=== PATIENT | female | born 1990 | race Caucasian/White ===

== ENCOUNTER → 2017-12-02 | Outpatient (CLI) | payer BC ==
[~2017-12-02] MED LIST: CEPH500C PO; FERR-57 PO; IBP600T1 PO; METO5TAB79 PO; ONDAN4ODT PO; OXYC-12 PO; PREN1TAB39 PO; PRM25T PO
[2017-12-02] MEDS: GADOBUTROL 7.5 MMOL/7.5 ML (GADAVIST) VIAL IV ONE (17:51)
--- NOTE | 2017-12-03 09:14 | Diagnostic Imaging Report ---
Indication: Bilateral eye pain, swelling and pressure exacerbated by bending over. Decreased vision in the right eye. I have no priors. Multiplanar, multisequence pre-and post IV contrast enhanced brain MRI performed. In addition to routine brain sequences multiplanar and multi-obliquity pre-and post enhanced imaging through the orbits were performed. Findings: There are no foci of abnormal diffusion restriction. There were no findings of an acute or subacute ischemic infarct. There is no hydrocephalus and no periventricular edema. No mass or space-occupying lesion at the level of the foramen Fernandes. No white matter pathology. No findings of focal or generalized cerebral edema and there is no evidence for an elevation of the intracranial pressures. Cerebral cortical volume appeared normal. There is no mastoid effusion. The cerebellopontine angles appeared normal. The brainstem and posterior fossa unremarkable. There is mild membrane thickening involving bilateral mastoid air cells and slight membrane disease thickening the bilateral maxillary sinus swain with minimal membrane thickening of the left frontal sinus. No paranasal sinus air-fluid level. With the administration of intravenous contrast there was no abnormal intracranial parenchymal or meningeal enhancement. The globes had an unremarkable appearance. There was no edema or distortion of the intra-or extraconal orbital fat. The globes appeared symmetric, no proptosis. Normal orbital enhancement. The cavernous sinuses, sella and suprasellar cisterns appeared unremarkable. No impingement or mass effect upon the optic chiasm, the pituitary infundibulum nondisplaced. Flow voids in the cavernous sinuses are maintained. The extraocular muscles and tendinous insertions appeared unremarkable. No abnormal fluid distention of the optic nerve sheaths. There were was no abnormality or findings to explain the presenting complaint. Impression: Unremarkable pre-and postcontrast enhanced brain MRI and MRI orbits. Dictated by: Dictated on workstation # [id number]
== END ==
LOC: RAD 16:36
PROVIDERS: ATTEND Nurse Practitioner Community Health
DX: H46.9 Unspecified optic neuritis (principal)
CPT/HCPCS: 70553

== ENCOUNTER → 2018-03-21 | Outpatient (CLI) | payer BC ==
--- NOTE | 2018-03-21 17:33 | Diagnostic Imaging Report ---
INDICATION: survey. TECHNIQUE: Multiple real-time grayscale images were obtained over the gravid uterus. COMPARISON: None. FINDINGS: There is a single live intrauterine in the breech presentation. Placenta is anteriorly located and there is no previa. heart rate is 128 beats per minute. Due to advanced gestational age, maternal adnexa are poorly evaluated. anatomy survey was performed and the following structures are visualized and normal: Cerebral ventricles, cerebellum, cisterna magna, stomach, umbilical cord insertion, urinary bladder, three-vessel cord, four-chamber heart, diaphragm and profile. Questionable mild dilation of bilateral renal pelves and suboptimal assessment of the spine. The LÓPEZ is normal at 17.8 cm. Biometrical measurements are as follows: Biparietal 4.62 cm, age 20 weeks 0 days. Head circumference 17.51 cm, age 20 weeks 1 days. Abdominal circumference 15.04 cm, age 20 weeks 2 days. Femur length 13.43 cm, age 20 weeks 6 days. Sonographic estimate age: 20 weeks 3 days. Sonographic estimated date of delivery: 08/07/2018. Estimated Weight: 345 gm (+/- 52 gm). LMP percentile: 63%. heart rate: 128 beats per minute. number: 1 of 1. IMPRESSION: 1. Single live intrauterine with concordant gestational age by ultrasound and LMP. 2. The spine is suboptimally evaluated due to positioning and there is potential mild dilation of bilateral renal pelves. Recommend followup targeted anatomy ultrasound of these structures in the near future. 3. Remainder of the anatomy survey is normal. Dictated by: Dictated on workstation # [id number]
== END ==
LOC: RAD 12:45
PROVIDERS: ATTEND Obstetrics & Gynecology
DX: Z36.89 Encounter for other specified antenatal screening (principal); Z3A.20 20 weeks gestation of pregnancy
CPT/HCPCS: 76805

== ENCOUNTER → 2018-05-23 | Outpatient (CLI) | payer BC ==
--- NOTE | 2018-05-23 14:35 | Diagnostic Imaging Report ---
INDICATION: Follow up anatomy. TECHNIQUE: Multiple real-time grayscale images were obtained over the gravid uterus. COMPARISON: 03/21/2018. FINDINGS: There is a single live fetus in a breech presentation. heart rate was recorded at 146 beats per minute. Placenta is anterior. Amniotic fluid index is 11 cm. Evaluation of the spine and kidneys was attempted. spine remains somewhat limited. There continues to be some mild prominence of the renal pelves bilaterally. Continued followup is recommended. IMPRESSION: spine remains limited in evaluation. kidneys show slight prominence of the pelves. Continued followup is recommended. Dictated by: Dictated on workstation # [id number]
== END ==
LOC: RAD 12:32
PROVIDERS: ATTEND Obstetrics & Gynecology
DX: O35.8XX0 Maternal care for other (suspected) fetal abnormality and damage, not applicable or unspecified (principal); Z3A.29 29 weeks gestation of pregnancy
CPT/HCPCS: 76816

== ENCOUNTER → 2018-07-11 | Outpatient (CLI) | payer BC ==
--- NOTE | 2018-07-11 17:50 | Diagnostic Imaging Report ---
INDICATION: Followup exam. TECHNIQUE: Multiple real-time grayscale images were obtained over the gravid uterus. COMPARISON: None. FINDINGS: The previous OB ultrasound exam performed on 05/23/2018 noted a single live fetus of approximately 29 weeks 1 day gestation. There did appear to be mild hydronephrosis of both kidneys. On this study, the fetus is again visualized. The fetus is cephalic in presentation. heart motion was noted, and a rate of 135 BPM was recorded. There is still mild hydronephrosis of both kidneys. This finding does not appear to have changed significantly. There is no sign of ascites. No other abnormality is noted. As on the previous exam, however, the spine is not well visualized. The growth parameters average 36 weeks 6 days, +/-3 weeks. The estimated weight is in the 50th percentile. The amniotic fluid volume is within normal limits. The placenta is anterior, and there is no previa. Biometrical measurements are as follows: Biparietal 8.80 cm, age 35 weeks 4 days. Head circumference 33.56 cm, age 38 weeks 3 days. Abdominal circumference 32.56 cm, age 36 weeks 4 days. Femur length 7.18 cm, age 36 weeks 6 days. Sonographic estimate age: 36 weeks 6 days. Sonographic estimated date of delivery: 08/02/2018. Estimated Weight: 2997 gm (+/- 438 gm). LMP percentile: 66%. heart rate: 135 beats per minute. number: 1 of 1. IMPRESSION: 1. There is a single live fetus of approximately 36.1 day gestation, +/-1.5 weeks. The EDC remains August 07, 2018. 2. The bilateral mild hydronephrosis of the kidneys seen previously is again evident and no different. No other abnormality is noted, although the spine was not well visualized. 3. The growth parameters have progressed as expected since the prior exam. Dictated by: Dictated on workstation # [id number]
== END ==
LOC: RAD 09:34
PROVIDERS: ATTEND Obstetrics & Gynecology
DX: O36.63X0 Maternal care for excessive fetal growth, third trimester, not applicable or unspecified (principal); Z3A.36 36 weeks gestation of pregnancy
CPT/HCPCS: 76816

== ENCOUNTER 2018-07-20 10:52 | Outpatient (CLI) | payer BC ==
[~2018-07-20] VITALS: Ht 167.6 cm; Wt 86.7 kg
--- NOTE | 2018-07-20 10:45 | NUR ---
GARETH MAS presented to unit via ambulation from home, accompanied by self, with c/o CRAMPING. GARETH MAS weighed, gowned, voided, and to bed. EFHM and TOCO applied, VS taken. GARETH MAS oriented to bed controls, call light, TV, heat, and A/C controls.
[2018-07-20 11:00] VITALS: BP 116/61
--- NOTE | 2018-07-20 11:30 | NUR ---
message left at dr torres office to call EDUARDO .
--- NOTE | 2018-07-20 12:15 | NUR ---
dr villagran given patient c/o and SBAR assessment. ok to d/c home self care.
--- NOTE | 2018-07-20 12:32 | NUR ---
out of WS via ambulation to home self care with precautions. no s/s of distress noted.
--- NOTE | 2018-07-21 14:54 | Physician Query-Final Dx ---
BRIAN ZAIDI 07/21/18 1454: Clinic Account Progress/Dx Physician Query: Dr Vela Please give a diagnosis and include the weeks of gestation. thank you Date of Service Jul 20, 2018 at 10:52 FREDDIE VELA MD 07/22/18 0743: Clinic Account Progress/Dx DIAGNOSIS: Diagnosis 37 weeks with false labor BRIAN ZAIDI Jul 21, 2018 14:54 FREDDIE VELA MD Jul 22, 2018 07:43
== END 2018-07-20 12:32 | disposition home or self-care (01) ==
LOC: LDRP 10:52 → WSo 10:52
PROVIDERS: ATTEND Obstetrics & Gynecology
DX: O47.1 False labor at or after 37 completed weeks of gestation (principal); Z3A.37 37 weeks gestation of pregnancy
CPT/HCPCS: 99213

== ENCOUNTER 2018-08-02 08:00 | Inpatient (IN) | payer BC ==
[2018-08-02] VITALS (53 sets, daily range): BP systolic 85–135; BP diastolic 46–81
[~2018-08-02] VITALS: Ht 162.6 cm; Wt 86.2 kg
--- NOTE | 2018-08-02 07:53 | NUR ---
GARETH MAS presented to unit via ambulatory from home accompanied by spouse, for INDUCTION. GARETH MAS weighed, gowned, voided, and to bed. EFHM and TOCO applied, VS taken. GARETH MAS oriented to bed controls, call light, TV, heat, and A/C controls.
[2018-08-02] MEDS ORDERED: D5 LR IV SOLUTION 1,000 ML IV ONE (08:11)
[2018-08-02] MEDS: D5 LR IV SOLUTION 1,000 ML IV SCH ×3 (08:24→20:58)
[2018-08-02] MEDS ORDERED: OXYTOCIN/NORMAL SALINE 500 ML IV SCH (08:49)
[2018-08-02] MEDS ORDERED: MINERAL OIL CONCENTRATE 99.9% 15 ML UDC TOP PRN (09:00)
[2018-08-02 09:05] LABS: BILIRUBIN,URINE NEGATIVE (NEGATIVE); CLARITY,URINE CLEAR; COLOR,URINE YELLOW; GLUCOSE, URINE (UA) NEGATIVE (NEGATIVE); KETONES,URINE 2+ (NEGATIVE); LEUKOCYTE ESTERASE ,URINE 2+ (NEGATIVE); NITRITE,URINE NEGATIVE (NEGATIVE); PH,URINE 7 (5-9); PROTEIN,URINE NEGATIVE (NEGATIVE); UROBILINOGEN,URINE NORMAL (NORMAL)
[2018-08-02 09:06] LABS: BASOPHILS % (AUTO) 0 % (0-10); EOSINOPHILS # (AUTO) 0.1 10^3/uL (0.0-0.3); EOSINOPHILS % (AUTO) 1 % (0-10); HEMATOCRIT 32 % (35-52); HEMOGLOBIN 10.1 G/DL (11.5-16.0); LYMPHOCYTES # (AUTO) 1.4 X 10^3 (1.0-4.0); LYMPHOCYTES % (AUTO) 16 % (12-44); MEAN CORPUSCULAR HEMOGLOBIN 26 PG (25-34); MEAN CORPUSCULAR HGB CONC 32 G/DL (32-36); MEAN CORPUSCULAR VOLUME 81 FL (80-99); MEAN PLATELET VOLUME 11.4 FL (7.4-10.4); MONOCYTES # (AUTO) 0.6 X 10^3 (0.0-1.0); MONOCYTES % (AUTO) 7 % (0-12); NEUTROPHILS # (AUTO) 6.6 X 10^3 (1.8-7.8); NEUTROPHILS % (AUTO) 76 % (42-75); PLATELET COUNT 183 10^3/uL (130-400); RED CELL DISTRIBUTION WIDTH 15.7 % (10.0-14.5); WHITE BLOOD COUNT 8.7 10^3/uL (4.3-11.0)
[2018-08-02 09:16] LABS: BACTERIA,URINE TRACE /HPF; SQUAMOUS EPITHELIAL CELL,UR 25-50 /HPF
[2018-08-02] MEDS ORDERED: LIDOCAINE/EPI 2% 1:200,00 (XYLOCAINE) 10 ML VIAL ONE ×2 (09:51→21:35)
[2018-08-02] MEDS ORDERED: SUFENTA 0.6MCG/ML BUPIVA 0.125 100 ML ONE (09:52)
[2018-08-02] MEDS ORDERED: LIDOCAINE 1% INJ 20 ML 20 ML VIAL ONE (09:55)
[2018-08-02] MEDS ORDERED: BUPIVACAINE 0.25% 30 ML (SENSORCAINE) VIAL ONE (10:51)
[2018-08-02] MEDS ORDERED: fentaNYL INJECTION 100 MCG/2 ML AMP ONE (10:51)
[2018-08-02] MEDS ORDERED: LACTATED RINGERS 1,000 ML IV SCH (11:26)
[2018-08-02] MEDS ORDERED: EPIDURAL (SUFENTA 0.6MCG/ML BUPIVA 0.125%) 100 ML BAG EPI PRN (11:30)
[2018-08-02] MEDS ORDERED: diphenhydrAMINE 50 MG/ML INJ (BENADRYL) IV PRN (11:30)
[2018-08-02] MEDS ORDERED: NALOXONE 0.4 MG/ML 1 ML (NARCAN) VIAL IV PRN ×2 (11:30)
[2018-08-02] MEDS ORDERED: METOCLOPRAMIDE INJ 10 MG/2 ML (REGLAN) IV PRN (11:30)
[2018-08-02] MEDS ORDERED: CATHETER FLUSH 10 ML SYR IV SCH (14:00)
[2018-08-02] MEDS: ONDANSETRON 4 MG/2 ML (SDV) Z0FRAN IV PRN ×2 (16:27→21:38)
[2018-08-02] MEDS ORDERED: ACETAMINOPHEN 325 MG TABLET PO ONE (16:30)
[2018-08-02] MEDS: OXYTOCIN/NORMAL SALINE 500 ML IV SCH ×2 (22:50→23:50)
--- NOTE | 2018-08-02 22:53 | OB Labor & Delivery Record ---
Vag Delivery Note Vag Delivery Note Date of Delivery: 08/02/18 Preoperative Diagnosis: Susan Campa is a (27 /Para 2 /1 ,Gestational Age39 2/7 weeks for induction of labor Postoperative Diagnosis: Same Surgeon: RENE MCCONNELL Anesthesia: Epidural Delivery Type: vaginal Findings: Viable female , apgars [], weight 3910 grams Lacerations: 2nd degre Intact placenta with 3 vessel cord. No nuchal cord, body cord or shoulder dystocia Estimated Blood Loss: 300 ml Complications: None Condition: Stable Description of Procedure: The patient is a 27 /Para 2 /1 ,Gestational Age39 2/7 weeks for induction of labor. She was admitted and informed consent was obtained. Her labor course was remarkable for oxytocin augmentation, AROM. She progressed to complete dilatation and began to push. She was then set up for delivery. The 's head was delivered atraumatically in the OA position. The shoulders and remainder of the infant's body were then delivered without difficulty. There was a right hand near the shoulder/right ear, that caused a delay of delivery, but there was no shoulder dystocia. Upon delivery, the head was held below the level of the perineum and the mouth and nares were bulb suctioned. The cord was doubly clamped and cut and the was handed off to the pediatric staff. An intact placenta with 3- vessel cord delivered via Crow and there was found to be minimal bleeding.~ Vigorous fundal massage was performed and the fundus was found to be firm. IV oxytocin was given. Examination of the vagina and perineum revealed a 2nd degree. laceration repaired in the usual fashion with 3-0 vicryl suture. Following the repair, sponge, instrument and needle counts were correct. Mom and baby were both in stable condition in the labor suite. Vitals - Labs Vital Signs - I&O Vital Signs Date Time Temp Pulse Resp B/P (MAP) Pulse Ox O2 Delivery O2 Flow Rate FiO2 08/02/18 20:00 88 16 106/55 (72) 100 08/02/18 19:45 87 107/61 (76) 99 08/02/18 19:30 85 106/66 (79) 99 08/02/18 19:15 86 105/62 (76) 98 08/02/18 19:00 98 103/57 (72) 99 08/02/18 18:45 86 16 116/57 (76) 98 08/02/18 18:15 85 114/63 (80) 97 08/02/18 18:00 89 107/56 (73) 97 08/02/18 17:45 97.8 87 98 08/02/18 17:30 90 16 99/55 (70) 93 08/02/18 17:15 84 97/55 (69) 94 08/02/18 17:00 80 99/58 (72) 98 08/02/18 16:45 87 94/61 (72) 98 08/02/18 16:30 89 99/54 (69) 100 08/02/18 16:15 97 112/69 (83) 98 08/02/18 16:00 97.1 90 16 109/61 (77) 98 08/02/18 15:45 95 102/59 (73) 99 08/02/18 15:30 92 108/57 (74) 98 08/02/18 15:15 87 100/58 (72) 99 08/02/18 15:00 87 85/46 (59) 99 08/02/18 14:45 84 16 97/52 (67) 94 08/02/18 14:30 85 110/59 (76) 93 08/02/18 14:15 96.7 94 104/57 (73) 99 08/02/18 14:00 92 16 102/55 (71) 99 08/02/18 13:45 87 100/57 (71) 94 08/02/18 13:45 87 102/55 (71) 94 08/02/18 13:30 101 16 100/57 (71) 98 08/02/18 13:15 115 104/61 (75) 100 08/02/18 13:00 93 99/56 (70) 99 08/02/18 12:30 102 16 109/63 (78) 97 08/02/18 12:15 94 16 117/64 (81) 96 08/02/18 12:00 89 117/64 (81) 96 08/02/18 11:45 98.0 86 16 107/57 (74) 98 Room Air 98.00 08/02/18 11:30 92 123/58 (79) 97 Room Air 08/02/18 11:10 94 120/79 (93) 97 Room Air 08/02/18 11:06 94 118/79 (92) 99 Room Air 08/02/18 11:00 89 123/73 (90) 99 Room Air 08/02/18 11:00 94 124/65 (84) 99 Room Air 08/02/18 10:55 100 16 124/65 (84) Room Air 08/02/18 10:50 88 16 120/75 (90) Room Air 08/02/18 10:45 93 105/58 (74) Room Air 08/02/18 10:30 87 16 106/64 (78) Room Air 08/02/18 10:15 97.4 85 109/63 (78) Room Air 08/02/18 09:45 87 104/64 (77) Room Air 08/02/18 09:15 92 18 105/69 (81) Room Air 08/02/18 08:05 97.3 85 20 109/69 (82) Room Air Labs Laboratory Tests 08/02/18 08:00: Urine Color YELLOW, Urine Clarity CLEAR, Urine pH 7, Urine Specific [place] 1.010L, Urine Protein NEGATIVE, Urine Glucose (UA) NEGATIVE, Urine Ketones 2+H, Urine Nitrite NEGATIVE, Urine Bilirubin NEGATIVE, Urine Urobilinogen NORMAL, Urine Leukocyte Esterase 2+H, Urine RBC (Auto) NEGATIVE, Urine RBC NONE, Urine WBC 10-25H, Urine Squamous Epithelial Cells 25-50H, Urine Renal Epithelial Cells NONE, Urine Crystals NONE, Urine Bacteria TRACE, Urine Casts NONE, Urine Mucus NEGATIVE, Urine Culture Indicated YES 08/02/18 08:20: White Blood Count 8.7, Red Blood Count 3.94L, Hemoglobin 10.1L, Hematocrit 32L, Mean Corpuscular Volume 81, Mean Corpuscular Hemoglobin 26, Mean Corpuscular Hemoglobin Concent 32, Red Cell Distribution Width 15.7H, Platelet Count 183, Mean Platelet Volume 11.4H, Neutrophils (%) (Auto) 76H, Lymphocytes (%) (Auto) 16, Monocytes (%) (Auto) 7, Eosinophils (%) (Auto) 1, Basophils (%) (Auto) 0, Neutrophils # (Auto) 6.6, Lymphocytes # (Auto) 1.4, Monocytes # (Auto) 0.6, Eosinophils # (Auto) 0.1, Basophils # (Auto) 0.0 RENE MCCONNELL DO Aug 02, 2018 22:52
[2018-08-02] MEDS ORDERED: BENZOCAINE/MENTHOL (DERMOPLAST) 56 ML CAN TP PRN (23:00)
[2018-08-02] MEDS ORDERED: DIBUCAINE (NUPERCAINAL) 1% OINT 30 GM TOP PRN (23:00)
[2018-08-02] MEDS ORDERED: MEASLES,MUMPS,RUBELLA 1 EA INJ SQ ONE (23:00)
[2018-08-02] MEDS ORDERED: TETANUS,DIPTH,PERTUSS P/F (BOOSTRIX) 0.5 ML VIAL IM ONE (23:00)
[2018-08-02] MEDS ORDERED: WITCH HAZEL(TUCKS) 40 EA JAR TOP PRN (23:00)
--- NOTE | 2018-08-02 23:00 | NUR ---
As this rn assumes care, wagner cath not in place, epidural cath removed, cath tip in tact.
[2018-08-03] MEDS ORDERED: IBUPROFEN 600 MG (MOTRIN) TAB PO ONE (01:26)
[2018-08-03] MEDS: IBUPROFEN 600 MG (MOTRIN) TAB PO SCH ×3 (01:27→20:15)
[2018-08-03] MEDS ORDERED: CATHETER FLUSH 10 ML SYR IV SCH (06:00)
[2018-08-03 06:18] LABS: BASOPHILS % (AUTO) 0 % (0-10); EOSINOPHILS # (AUTO) 0.1 10^3/uL (0.0-0.3); EOSINOPHILS % (AUTO) 1 % (0-10); HEMATOCRIT 29 % (35-52); HEMOGLOBIN 8.9 G/DL (11.5-16.0); LYMPHOCYTES # (AUTO) 1.4 X 10^3 (1.0-4.0); LYMPHOCYTES % (AUTO) 11 % (12-44); MEAN CORPUSCULAR HEMOGLOBIN 25 PG (25-34); MEAN CORPUSCULAR HGB CONC 31 G/DL (32-36); MEAN CORPUSCULAR VOLUME 81 FL (80-99); MEAN PLATELET VOLUME 11.1 FL (7.4-10.4); MONOCYTES % (AUTO) 8 % (0-12); NEUTROPHILS # (AUTO) 10.1 X 10^3 (1.8-7.8); NEUTROPHILS % (AUTO) 80 % (42-75); PLATELET COUNT 153 10^3/uL (130-400); RED CELL DISTRIBUTION WIDTH 15.4 % (10.0-14.5); WHITE BLOOD COUNT 12.6 10^3/uL (4.3-11.0)
[2018-08-03 06:21] VITALS: BP 94/55
[2018-08-03] MEDS: ACETAMINOPHEN 500 MG TAB (TYLENOL) PO SCH ×3 (06:21→22:07)
--- NOTE | 2018-08-03 07:54 | Anesthesia-Regional Post-Op ---
Regional Patient Condition Mental Status: Alert, Oriented x3 Circulation: Same as Pre-Op Headache: Absent Sensation: Full Recovery Motor Block: Absent Post Op Complications Complications None Follow Up Care/Instructions Patient Instructions None needed. Anesthesia/Patient Condition Patient is doing well, no complaints, stable vital signs, no apparent adverse anesthesia problems. No complications reported per nursing. SILVERIO LANE CRNA August 03, 2018 07:54
[2018-08-03 07:55] VITALS: BP 106/70
[2018-08-03] MEDS: PRENATAL VITAMIN 1 EA TAB PO SCH (08:10)
[2018-08-03] MEDS ORDERED: FERROUS SULF 325 MG (IRON) TAB PO SCH (09:00)
[2018-08-03] MEDS: DOCUSATE SODIUM 100 MG (COLACE) CAP PO SCH ×2 (09:18→21:53)
[2018-08-03 12:00] VITALS: BP 104/70
--- NOTE | 2018-08-03 14:00 | NUR ---
Rhogam given with instructions - ID care given. Pt complains of uterine cramping. Tylenol and Ibuprofen given routinely. Warm blanket given for cramping in between pain medication.
--- NOTE | 2018-08-03 16:20 | NUR ---
REPORT RECEIVED FROM SYDNEE PARKER RN.
--- NOTE | 2018-08-03 17:25 | NUR ---
FAMILY AT BEDSIDE. DENIES ANY WANTS OR NEEDS.
--- NOTE | 2018-08-03 17:43 | Postpartum Progress Note ---
Note Note Day # 1 s/p Subjective: Patient is without complaints. Ambulating, voiding. Tolerating a regular diet without nausea or vomiting. Normal lochia. Pain is well controlled with oral pain medications. [] feeding. [] Objective: 08/03/18 08/03/18 06:21 07:55 Temp 97.8 97.9 Pulse 83 80 Resp 18 20 B/P (MAP) 94/55 (68) 106/70 (82) Pulse Ox 95 98 O2 Delivery Room Air 08/03/18 00:00 Intake Total 1700 ml Balance 1700 ml Laboratory Tests Test 08/03/18 06:05 Range/Units White Blood Count 12.6 H 4.3-11.0 10^3/uL Red Blood Count 3.54 L 4.35-5.85 10^6/uL Hemoglobin 8.9 L 11.5-16.0 G/DL Hematocrit 29 L 35-52 % Mean Corpuscular Volume 81 80-99 FL Mean Corpuscular Hemoglobin 25 25-34 PG Mean Corpuscular Hemoglobin Concent 31 L 32-36 G/DL Red Cell Distribution Width 15.4 H 10.0-14.5 % Platelet Count 153 130-400 10^3/uL Mean Platelet Volume 11.1 H 7.4-10.4 FL Neutrophils (%) (Auto) 80 H 42-75 % Lymphocytes (%) (Auto) 11 L 12-44 % Monocytes (%) (Auto) 8 0-12 % Eosinophils (%) (Auto) 1 0-10 % Basophils (%) (Auto) 0 0-10 % Neutrophils # (Auto) 10.1 H 1.8-7.8 X 10^3 Lymphocytes # (Auto) 1.4 1.0-4.0 X 10^3 Monocytes # (Auto) 1.0 0.0-1.0 X 10^3 Eosinophils # (Auto) 0.1 0.0-0.3 10^3/uL Basophils # (Auto) 0.0 0.0-0.1 10^3/uL Physical Exam: General - Alert and oriented, no apparent distress Abdomen - Soft, appropriately tender to palpation, non-distended, fundus firm at umbilicus Extremities - no edema, negative Chay's bilaterally [] Assessment: [] post- day # [], status post [] vaginal delivery. Recovering well, hemodynamically stable [] Plan: Routine care. Encourage breast feeding. Encourage ambulation. Ferrous sulfate supplementation. Plan for discharge [] Vitals - Labs Vital Signs - I&O Vital Signs Date Time Temp Pulse Resp B/P (MAP) Pulse Ox O2 Delivery O2 Flow Rate FiO2 08/03/18 07:55 97.9 80 20 106/70 (82) 98 Room Air 08/03/18 06:21 97.8 83 18 94/55 (68) 95 08/02/18 23:15 112 18 129/55 (79) 08/02/18 23:00 18 08/02/18 22:52 108 20 132/81 (98) 08/02/18 22:05 109 22 135/62 (86) 08/02/18 21:50 113 22 108/63 (78) 08/02/18 21:35 121 22 113/69 (84) 08/02/18 21:20 84 18 99/54 (69) 08/02/18 21:05 86 18 102/59 (73) 98 08/02/18 20:50 98.0 100 18 99/57 (71) 99 08/02/18 20:35 80 18 93/47 (62) 98 08/02/18 20:20 87 18 97/50 (66) 99 08/02/18 20:00 88 16 106/55 (72) 100 08/02/18 19:45 87 107/61 (76) 99 08/02/18 19:30 85 106/66 (79) 99 08/02/18 19:15 86 105/62 (76) 98 08/02/18 19:00 98 103/57 (72) 99 08/02/18 18:45 86 16 116/57 (76) 98 08/02/18 18:15 85 114/63 (80) 97 08/02/18 18:00 89 107/56 (73) 97 08/02/18 17:45 97.8 87 98 I & O 08/03/18 07:00 Intake Total 2700 ml Balance 2700 ml Labs Laboratory Tests 08/03/18 06:05: White Blood Count 12.6H, Red Blood Count 3.54L, Hemoglobin 8.9L, Hematocrit 29L , Mean Corpuscular Volume 81, Mean Corpuscular Hemoglobin 25, Mean Corpuscular Hemoglobin Concent 31L, Red Cell Distribution Width 15.4H, Platelet Count 153, Mean Platelet Volume 11.1H, Neutrophils (%) (Auto) 80H, Lymphocytes (%) (Auto) 11L, Monocytes (%) (Auto) 8, Eosinophils (%) (Auto) 1, Basophils (%) (Auto) 0, Neutrophils # (Auto) 10.1H, Lymphocytes # (Auto) 1.4, Monocytes # (Auto) 1.0, Eosinophils # (Auto) 0.1, Basophils # (Auto) 0.0 Microbiology 08/02/18 Urine Culture - Final, Complete Lactobacillus species See Report RENE MCCONNELL DO August 03, 2018 17:43
[2018-08-04 02:05] VITALS: BP 108/70
[2018-08-04] MEDS: IBUPROFEN 600 MG (MOTRIN) TAB PO SCH ×2 (02:09→07:39)
[2018-08-04] MEDS: ACETAMINOPHEN 500 MG TAB (TYLENOL) PO SCH (06:18)
[2018-08-04 07:35] VITALS: BP 109/73
[2018-08-04] MEDS: PRENATAL VITAMIN 1 EA TAB PO SCH (07:39)
[2018-08-04] MEDS ORDERED: IBUP-844 PO (11:19)
[2018-08-04] MEDS ORDERED: ACET-77 PO (11:19)
--- NOTE | 2018-08-04 11:21 | Discharge Inst-Women's Service ---
Discharge Inst-Women's Serv Depart Medication/Instructions New, Converted or Re-Newed RX: RX on Chart Final Diagnosis induction, social vaginal delivery epidural antepartum and acute blood loss anemia Consults/Follow Up Additional Follow Up: Yes (6 weeks) Activity Activity: Activity as Tolerated Driving Instructions: You May Drive NO SMOKING: NO SMOKING Nothing Inside Vagina: No Douching, No [place], No Tampons Diet Discharge Diet: No Restrictions Symptoms to Report to : Pain Increased, Vaginal Bleeding Increase, Cramps in Feet or Legs For Any Problems or Questions: Contact Your Physician RENE MCCONNELL DO August 04, 2018 11:21
--- NOTE | 2018-08-04 11:22 | Postpartum Progress Note ---
Note Note Day # 2 s/p Subjective: Patient is without complaints. Ambulating, voiding. Tolerating a regular diet without nausea or vomiting. Normal lochia. Pain is well controlled with oral pain medications. [] feeding. [] Objective: 08/04/18 08/04/18 02:05 07:35 Temp 98.2 97.9 Pulse 74 78 Resp 18 16 B/P (MAP) 108/70 (83) 109/73 (85) Pulse Ox 100 99 O2 Delivery Room Air Room Air Physical Exam: General - Alert and oriented, no apparent distress Abdomen - Soft, appropriately tender to palpation, non-distended, fundus firm at umbilicus Extremities - no edema, negative Chay's bilaterally [] Assessment: [] post- day # [], status post [] vaginal delivery. Recovering well, hemodynamically stable [] Plan: Routine care. Encourage breast feeding. Encourage ambulation. Ferrous sulfate supplementation. Plan for discharge [] Vitals - Labs Vital Signs - I&O Vital Signs Date Time Temp Pulse Resp B/P (MAP) Pulse Ox O2 Delivery O2 Flow Rate FiO2 08/04/18 07:35 97.9 78 16 109/73 (85) 99 Room Air 08/04/18 02:05 98.2 74 18 108/70 (83) 100 Room Air 08/03/18 12:00 98.3 82 20 104/70 (81) 99 Room Air Labs Microbiology 08/02/18 Urine Culture - Final, Complete Lactobacillus species See Report RENE MCCONNELL DO August 04, 2018 11:22
[2018-08-04 11:30] VITALS: BP 109/73
--- NOTE | 2018-08-04 12:40 | NUR ---
Home instructions given orally and written. Verbalizes understanding. Ambulated to exit accompanied by and this nurse.
== END 2018-08-04 12:40 | disposition home or self-care (01) | DRG 806 ==
LOC: LDRP 08:00
PROVIDERS: ADMIT Obstetrics & Gynecology; ATTEND Obstetrics & Gynecology
PROC: 10E0XZZ Delivery of Products of Conception, External Approach (ICD-10-PCS; principal; 2018-08-02)
PROC: 0KQM0ZZ Repair Perineum Muscle, Open Approach (ICD-10-PCS; 2018-08-02)
PROC: 10907ZC Drainage of Amniotic Fluid, Therapeutic from Products of Conception, Via Natural or Artificial Opening (ICD-10-PCS; 2018-08-02)
DX: O99.02 Anemia complicating childbirth (principal); O70.1 Second degree perineal laceration during delivery; O90.81 Anemia of the puerperium; D62 Acute posthemorrhagic anemia; Z37.0 Single live birth; Z3A.39 39 weeks gestation of pregnancy
CPT/HCPCS: 36415; 81000; 83033; 85025; 86850; 86900; 86901; 87088

== ENCOUNTER → 2020-02-23 | Outpatient (CLI) | payer BC ==
[~2020-02-23] MED LIST changes: +ACET-78 PO; +IBUP-844 PO
--- NOTE | 2020-02-23 13:03 | Diagnostic Imaging Report ---
PROCEDURE: Pelvic comp/transvaginal sonogram. TECHNIQUE: Complete transabdominal and transvaginal pelvic ultrasound was performed. In addition, limited pelvic Doppler was performed. INDICATION: Abnormal uterine bleeding. FINDINGS: The uterus is anteverted measuring 7.4 x 3.7 x 4.4 cm. The endometrium is 4 mm in thickness. No myometrial mass is identified. The right ovary measures 2.2 x 2.0 x 2.4 cm and the left ovary measures 2.3 x 1.6 x 1.9 cm. The ovaries contain small follicles. Both ovaries demonstrate blood flow. No adnexal mass or free fluid is detected. IMPRESSION: Unremarkable transabdominal and transvaginal pelvic ultrasound with limited pelvic Doppler. Dictated by: Dictated on workstation # [id number]
== END ==
LOC: RAD 11:00
PROVIDERS: ATTEND Obstetrics & Gynecology
DX: N93.9 Abnormal uterine and vaginal bleeding, unspecified (principal)
CPT/HCPCS: 76830; 76856

== ENCOUNTER 2020-03-14 05:34 | Outpatient (RCR) | payer BC ==
[~2020-03-14] VITALS: Ht 165.1 cm; Wt 76.4 kg
[~2020-03-14 05:34] MED LIST changes: +BUPR300T43 PO
== END 2020-03-14 10:13 | disposition home or self-care (01) ==
LOC: PREOP 05:34
PROVIDERS: ATTEND Obstetrics & Gynecology
DX: Z01.812 Encounter for preprocedural laboratory examination (principal); N81.2 Incomplete uterovaginal prolapse; N93.9 Abnormal uterine and vaginal bleeding, unspecified; Z20.828 Contact with and (suspected) exposure to other viral communicable diseases
CPT/HCPCS: 87635

== ENCOUNTER 2020-03-20 05:44 | Outpatient (RCR) | payer BC | END 2020-03-20 14:33 | disposition home or self-care (01) | LOC: PREOP 05:44 | PROVIDERS: ATTEND Obstetrics & Gynecology | DX: Z01.812 Encounter for preprocedural laboratory examination (principal); N81.4 Uterovaginal prolapse, unspecified; N93.9 Abnormal uterine and vaginal bleeding, unspecified; Z20.828 Contact with and (suspected) exposure to other viral communicable diseases | CPT/HCPCS: 87635 ==

== ENCOUNTER 2020-03-22 12:01 | Day surgery (SDC) | payer BC ==
[2020-03-22] VITALS (8 sets, daily range): BP systolic 88–114; BP diastolic 41–71
[~2020-03-22] VITALS: Ht 165.1 cm; Wt 76.4 kg
[2020-03-22] MEDS ORDERED: metroNIDAZOLE 500MG/100ML IVPB 100 ML IV ONE (12:15)
[2020-03-22] MEDS ORDERED: ceFAZolin INJECTION 1,000 MG in WATER (STERILE) FOR INJECTION 10 ML IV ONE (12:15)
[2020-03-22] MEDS: LACTATED RINGERS 1,000 ML IV PRN ×3 (12:39→16:57)
[2020-03-22 12:48] LABS: BASOPHILS % (AUTO) 1 % (0-10); EOSINOPHILS # (AUTO) 0.2 10^3/uL (0.0-0.3); EOSINOPHILS % (AUTO) 2 % (0-10); HEMATOCRIT 47 % (35-52); HEMOGLOBIN 15.5 g/dL (11.5-16.0); LYMPHOCYTES % (AUTO) 15 % (12-44); MEAN CORPUSCULAR HEMOGLOBIN 29 pg (25-34); MEAN CORPUSCULAR HGB CONC 33 g/dL (32-36); MEAN CORPUSCULAR VOLUME 88 fL (80-99); MEAN PLATELET VOLUME 11.5 fL (9.0-12.2); MONOCYTES # (AUTO) 0.7 10^3/uL (0.0-1.0); MONOCYTES % (AUTO) 10 % (0-12); NEUTROPHILS # (AUTO) 4.9 10^3/uL (1.8-7.8); NEUTROPHILS % (AUTO) 72 % (42-75); PLATELET COUNT 197 10^3/uL (130-400); WHITE BLOOD COUNT 6.8 10^3/uL (4.3-11.0)
[2020-03-22] MEDS ORDERED: ONDANSETRON 4 MG/2 ML (SDV) Z0FRAN ONE (13:27)
[2020-03-22] MEDS ORDERED: MIDAZOLAM 2 MG/2 ML (VERSED) VIAL ONE (13:27)
[2020-03-22] MEDS ORDERED: proPOfol 200 MG/20 ML (DIPRIVAN) VIAL IV ONE (13:27)
[2020-03-22] MEDS ORDERED: ROCURONIUM 10 MG/ML 5 ML SYRINGE IV ONE ×2 (13:27→17:09)
[2020-03-22] MEDS ORDERED: LIDOCAINE PF 2% 5 ML (XYLOCAINE) VIAL ONE (13:27)
[2020-03-22] MEDS ORDERED: SEVOFLURANE (ULTANE) 15 ML INHAL SOLN ONE ×4 (13:27→17:04)
[2020-03-22] MEDS ORDERED: NEOSTIGMINE 3 MG/3 ML VIAL ONE (13:29)
[2020-03-22] MEDS ORDERED: fentaNYL INJECTION 100 MCG/2 ML AMP ONE ×2 (13:29→17:11)
[2020-03-22] MEDS ORDERED: GLYCOPYRROLATE 0.2 MG/ML (ROBINUL) 2 ML VIAL ONE (13:29)
--- NOTE | 2020-03-22 14:18 | Progress Note-Pre Operative ---
Pre-Operative Progress Note H&P Reviewed The H&P was reviewed, patient examined and no changes noted. Date Seen by Provider: Mar 22, 2020 Time Seen by Provider: 14:00 Date H&P Reviewed: Mar 22, 2020 Time H&P Reviewed: 14:00 Pre-Operative Diagnosis: Abnormal uterine bleeding, symptomatic uterovaginal prolapse RENE MCCONNELL DO Mar 22, 2020 14:18
[2020-03-22] MEDS ORDERED: LIDOCAINE/EPI 1%-1:100,000 (XYLOCAINE) 50 ML ONE (15:12)
[2020-03-22] MEDS ORDERED: morphine INJ 4 MG/ML 1 ML (VIAL/SYRINGE) IVP PRN (15:15)
[2020-03-22] MEDS ORDERED: KETOROLAC 30 MG/ML VIAL IV SCH (15:15)
[2020-03-22] MEDS ORDERED: ONDANSETRON 4 MG (ZOFRAN) ORAL DISSOLVE TAB PO PRN (15:15)
[2020-03-22] MEDS ORDERED: OXYC5TAB PO (15:20)
[2020-03-22] MEDS ORDERED: ACET-2267 PO (15:20)
[2020-03-22] MEDS ORDERED: IBUP-1773 PO (15:20)
[2020-03-22] MEDS ORDERED: DOCU-143 PO (15:20)
--- NOTE | 2020-03-22 15:22 | Discharge Inst-Women's Service ---
Discharge Inst-Women's Serv Depart Medication/Instructions New, Converted or Re-Newed RX: RX on Chart Final Diagnosis abnormal uterine bleeding incomplete uterovaginal prolapse Problems Reviewed?: Yes Consults/Follow Up Additional Follow Up: Yes (1 week and 10-12 weeks) Activity Activity: Activity as Tolerated Driving Instructions: No Driving for 1 Week NO SMOKING: NO SMOKING Nothing Inside Vagina: No Douching, No [place] (for 10-12 weeks (until cleared by physician)), No Tampons Other Activity may return to work as scheduled Diet Discharge Diet: No Restrictions Symptoms to Report to : Swelling Increased, Bleeding Excessive, Pain Increased, Constipation(Persistant), Fever Over 101 Degrees F, Vaginal Bleeding Increase, Cramps in Feet or Legs, Vaginal Discharge Foul For Any Problems or Questions: Contact Your Physician Skin/Wound Care Infection Signs and Symptoms: Increased Redness, Foul Odor of Wound, Increased Drainage, Skin Itchy or Has a Rash, Increased Swelling, Temperature Above 101 F Operative Area Clean and Dry: You May Remove Bandage (in 3 days (or if soiled or wet)) Stitches/Allan/Dermabond: Dermabond Bathing Instructions: RENE Alatorre DO Mar 22, 2020 15:22
--- NOTE | 2020-03-22 15:23 | Operative Report ---
Operative Report Date of Procedure/Surgery Mar 22, 2020 Surgeon (s) RENE MCCONNELL DO Machine Sewer (s): NA Post-Operative Diagnosis abnormal uterine bleeding incomplete uterovaginal prolapse pelvic congestion Procedure Performed Bernabe Mckeon salpingectomy (partial) ovarian suspension culdoplasty Description of Procedure Anesthesia Type: General Estimated blood loss (mL): 200 Specimen(s) collected/removed uterus, bilateral tubes Description of the Procedure After informed consent was obtained, patient was taken into the operating room where general anesthetic was found to be adequate. She was prepped and draped in the usual sterile fashion in the dorsal lithotomy position. A Aguilar catheter was placed. A speculum was placed in the vagina. There was 2- 3 + uterine prolapse with minimal cystocele or rectocele. The cervix prolapsed to the introitus after grasping with the tenaculum. The cervix was visualized and the anterior lip was grasped with a sharp toothed tenaculum. This prolapsed to the introitus (3+). The uterus was sounded and depth was approximately 8 centimeters. I placed the Tatiana device (8 cm) and a 3.0 cm collar was advanced over the cervix. I inserted the Tatiana without difficulty, inflating the balloon and securing it around the fornix of the cervix. The collar was then secured with sutures at 12 o'clock. Attention was then turned to the patient's abdomen. A supraumbilical incision was made about 8 mm. A Veress needle was inserted and I confirmed intraabdominal placement with a drop in pressure and the saline drop test. The opening pressure was 8 mmHg. I then insufflated the abdomen to a maximum of 15 mmHg with warmed CO2 gas. I placed an additional 8 mm trocar in the left abdomen lateral to the umbilicus approximately 15 cm. It was determined that this could be completed robotically. The second robotic port was placed about 12 cm lateral to the right placement. This was an 8 mm trocar. These were placed under direct visualization of the laparoscope. 1% Lidocaine with epinephrine was injected prior to placement of all trocars. When all placements were confirmed, the patient was placed in steep Trendelenburg allowing adequate visualization and the robot was brought in for docking. The docking was accomplished without difficulty. I then took over the command of the robot utilizing the vessel sealer and monopolar jose. there were clips on the tubs from previous tubal sterilization, but a the majority of the tubes were still present. There were filmy adhesions of the right tube to the ovarian fossa on the right. These were taken down with the jose. I was able to visualize the round ligaments bilaterally and grasped them and cauterized with bipolar cautery and then cut with my jose. At this point, I then did bilateral salpingectomy. I incised the mesosalpinx with the jose. Then, I grasped with cornu and transected bilaterally using the vessel sealer. I then moved my dissection to the posterior leaves of the broad ligament. I dissected the posterior leaves of the broad ligament off the uterine arteries skeletonizing them bilaterally. I then took a second clamp with the vessel sealer and with the jose, transected the vessels away from the lateral aspect to the cervical stroma. These vessels were very dilated and tortuous. I dissected the anterior peritoneum off the lower uterine segment. I continually pushed the bladder back and I took excessively great care and I was eventually able to dissect the vesicouterine peritoneum off the lower uterine segment. I then dissected in a V fashion towards the midline between the uterosacral ligaments. This allowed me to skeletonize the uterine vessels bilaterally. The balloon on the TATIANA was insufflated. This allowed me to see the TATIANA circumferentially. I then performed a colpotomy anteriorly and then amputate with cervix away from the vaginal fornix. I then continued the colpotomy circumferentially. Once this was performed, the program assistant removed the uterus, tubes and ovaries through the vagina. She then packed the vagina with a laparotomy sponge to maintain the pneumoperitoneum. . I then began closure of the vaginal cuff. I closed the apices of the vaginal cuff with 2-0 Vicryl V lock sutures with a colposuspension through the uterosacral ligaments. This suspended the apices of the vaginal cuff. I extended this to the midline from both sides and overlapped the V lock sutures in the midline. Excellent closure is noted and hemostasis is achieved. I took an additional O Vicryl and did a modified culdoplasty to reduce the enterocele taking care to avoid the ureters. These could be seen normal and effluxing. This was tied after the purse string suture was placed. In addition, after the hysterectomy and salpingectomy, the ovaries were noted to be prolapsed to the vaginal cuff. So I did suspend the ovaries bilaterally to prevent post operative pain or adhesions to the cuff. I took the 0 V-lock suture and suspended each ovary to the ipsilateral round ligament remnant. All the needles were removed from the patient's abdomen. The pelvis was irrigated. There was no active bleeding noted. Now, the robotic instruments were removed and the robot was undocked. Bilateral ureters were seen the entire time during the surgery and were peristalsing. There was no excessive bleeding noted. The trocars were removed under direct visualization. The laparoscopic sites were visualized and found to be hemostatic. The trocar sites were injected with 1% lidocaine with epinephrine. The skin incisions were closed with 4-0 Monocryl in a subcuticular fashion and then with Dermabond. Op sites were placed over the incision sites. The instruments were removed from the vagina and I noted there were no abrasions. Findings of the Procedure 2-3+ uterine prolapse small, boggy uterus dilated/congested vessels in the pelvis evidence of tubal sterilization, bilateral Allergies and Home Medications Allergies Coded Allergies: No Known Drug Allergies (Unverified , 01/21/11) Home Medications Acetaminophen 500 Mg Tablet, 1,000 MG PO Q8H PRN for PAIN-MODERATE (5-7) Prescribed by: RENE MCCONNELL on 03/22/20 152 Bupropion HCl 300 Mg Tab.er.24h, 300 MG PO DAILY, (Reported) Docusate Sodium 100 Mg Capsule, 100 MG PO BID Prescribed by: RENE MCCONNELL on 03/22/20 152 Ibuprofen 600 Mg Tablet, 600 MG PO Q6H Prescribed by: RENE MCCONNELL on 03/22/20 1520 Oxycodone HCl 5 Mg Tablet, 5 MG PO Q6H Prescribed by: RENE MCCONNELL on 03/22/20 1520 Patient Home Medication List Home Medication List Reviewed: Yes RENE MCCONNELL DO Mar 22, 2020 15:23
[2020-03-22] MEDS ORDERED: KETOROLAC 30 MG/ML VIAL ONE (16:49)
--- NOTE | 2020-03-22 17:35 | Anesthesia-General Post-Op ---
General Patient Condition Mental Status/LOC: Same as Preop Cardiovascular: Satisfactory Nausea/Vomiting: Absent Respiratory: Satisfactory Pain: Controlled Complications: Absent Post Op Complications Complications None Follow Up Care/Instructions Patient Instructions None needed. Anesthesia/Patient Condition Patient Condition Patient is doing well, no complaints, stable vital signs, no apparent adverse anesthesia problems. No complications reported per nursing. RACHELE JOHNSON CRNA Mar 22, 2020 17:35
[2020-03-22] MEDS ORDERED: MEPERIDINE (DEMEROL) INJ 50 MG/ML IVP ONE (17:45)
[2020-03-22] MEDS ORDERED: HYDROmorphone 2 MG/ML VIAL (DILAUDID) IV ONE (17:45)
[2020-03-22] MEDS ORDERED: ONDANSETRON 4 MG/2 ML (SDV) Z0FRAN IVP PRN (17:45)
[2020-03-22] MEDS ORDERED: morphine INJ 10 MG/ML 1ML (SYR OR VIAL) IVP ONE (17:45)
[2020-03-22] MEDS ORDERED: HYDROmorphone 2 MG/ML VIAL (DILAUDID) ONE (17:59)
--- NOTE | 2020-03-22 18:30 | NUR ---
Pt transported to room 303 via bed with [employer] OPERATOR's @ side. pt resting with unlabored respirations, eyes closed. report received from Nisha Mittal RN.
--- NOTE | 2020-03-22 18:38 | NUR ---
vs taken. initial shift assessment completed. lap-sites x3, D/I with opsites covering. no drainage noted. wagner to DD with small amount of clear, yellow urine in chamber. v-pad in place. c/o's pain, rates @ 7 on 1-10 scale, immediately falls back to sleep.
--- NOTE | 2020-03-22 19:19 | NUR ---
report given to next shift.
[2020-03-22] MEDS: LACTATED RINGERS 1,000 ML IV SCH (20:30)
[2020-03-22] MEDS ORDERED: traZODone 50 MG (DESYREL) TAB PO SCH (21:00)
[2020-03-22] MEDS: DOCUSATE SODIUM 100 MG (COLACE) CAP PO SCH (21:00)
[2020-03-22] MEDS: ACETAMINOPHEN 500 MG TAB (TYLENOL) PO SCH (22:13)
[2020-03-23] MEDS: KETOROLAC 30 MG/ML VIAL IV SCH ×2 (00:19→06:34)
[2020-03-23 03:02] VITALS: BP 105/61
[2020-03-23] MEDS: LACTATED RINGERS 1,000 ML IV SCH (04:32)
[2020-03-23 06:32] VITALS: BP 99/54
--- NOTE | 2020-03-23 08:15 | NUR ---
pt assisted up to bathroom, void 200ml clear yellow urine. iv fluids dc'd and iv to saline lock. pt getting dressed.
[2020-03-23] MEDS: DOCUSATE SODIUM 100 MG (COLACE) CAP PO SCH (08:19)
[2020-03-23] MEDS: ACETAMINOPHEN 500 MG TAB (TYLENOL) PO SCH (08:19)
[2020-03-23 08:22] VITALS: BP 117/65
--- NOTE | 2020-03-23 08:45 | NUR ---
Discharge instructions explained, signed and copy to patient. pt verbalized understanding of instructions and medications. Questions answered.
[2020-03-23 09:15] VITALS: BP 117/65
--- NOTE | 2020-03-23 09:15 | NUR ---
Discharged to home. Ambulates self downstairs to private vehicle with belongings in hand. Accompanied by staff member
[2020-03-23] MEDS ORDERED: IBUPROFEN 600 MG (MOTRIN) TAB PO SCH (18:00)
== END 2020-03-23 09:15 | disposition home or self-care (01) ==
LOC: SDC 12:01 → LDRP 18:30 → SDC 03-23 09:15
PROVIDERS: ATTEND Obstetrics & Gynecology
DX: N93.9 Abnormal uterine and vaginal bleeding, unspecified (principal); N81.2 Incomplete uterovaginal prolapse; N72 Inflammatory disease of cervix uteri; F32.9 Major depressive disorder, single episode, unspecified; Z79.899 Other long term (current) drug therapy
CPT/HCPCS: 36415; 84703; 85025; 86850; 86900; 86901; 87081